=== PATIENT | male | born 1995 | race African-American/Black ===

== ENCOUNTER → 2017-01-27 | Outpatient (CLI) | payer OTHER ==
[2017-01-27 21:33] LABS: STREP SCREEN NEGATIVE
[2017-01-27 21:34] LABS: INFLUENZA A POSITIVE; INFLUENZA B NEGATIVE
== END ==
LOC: ZCOL.LAB 20:50
PROVIDERS: Family Medicine
DX: Z01.89 Encounter for other specified special examinations (principal)

== ENCOUNTER 2017-11-08 00:23 | Emergency (ER) | payer OTHER ==
[~2017-11-08] VITALS: Ht 175.3 cm; Wt 77.3 kg
[2017-11-08 00:27] VITALS: TEMP 98
[2017-11-08 02:16] VITALS: BP 106/66; PULSE 59
== END 2017-11-08 02:19 | disposition home or self-care (01) ==
LOC: COL.ER 00:23
DX: S16.1XXA Strain of muscle, fascia and tendon at neck level, initial encounter (principal); R51 Headache; W03.XXXA Other fall on same level due to collision with another person, initial encounter; Y93.61 Activity, american tackle football
CPT/HCPCS: J1885; J2060; J2405; J7030